=== PATIENT | female | born 1990 | race Caucasian/White ===

== ENCOUNTER 2016-12-28 05:30 | Inpatient (IN) | payer OTHER ==
[2016-12-28] MEDS: Lactated Ringer's 1,000 ML IV SCH ×2 (07:30→09:32)
[2016-12-28] MEDS ORDERED: LR 500 ML/Oxytocin 10 units 0 ML ONE ×4 (07:40→07:41)
[2016-12-28] MEDS ORDERED: LR 500 ML/Oxytocin 10 units 500 ML ONE (07:42)
[2016-12-28] MEDS ORDERED: Acetaminophen 500 MG TAB PO PRN (07:55)
[2016-12-28] MEDS ORDERED: LR / Pitocin 40 units/1000 ml 1,000 ML IV PRN (07:55)
[2016-12-28] MEDS ORDERED: Lidocaine 1% (PF) 30 ML VIAL SC PRN (07:55)
[2016-12-28] MEDS ORDERED: HYDROcodone/Acetaminophen 5/325 mg Tablet PO PRN ×2 (07:55→22:18)
[2016-12-28] MEDS ORDERED: Misoprostol 200 MCG TAB PR PRN (07:55)
[2016-12-28] MEDS ORDERED: Ibuprofen 800 MG TAB PO PRN (07:55)
[2016-12-28] MEDS ORDERED: Meperidine HCl/PF 25 MG/ML VIAL IM/IV PRN (07:55)
[2016-12-28] MEDS ORDERED: Promethazine HCl 25 MG/ML VIAL IM PRN ×2 (07:55→09:16)
[2016-12-28] MEDS ORDERED: Carboprost 250 MCG/ML AMP IM PRN (07:55)
[2016-12-28 08:08] LABS: Hematocrit 37.2 % (36.0-47.0); Mean Platelet Volume 8.1 fL (7.4-10.4); Red Blood Cell (RBC) Count 4.24 mill/uL (4.20-5.40); White Blood Cell (WBC) Count 7.9 thou/uL (4.8-10.8)
[2016-12-28 08:18] VITALS: BMI 35.4
[2016-12-28] MEDS ORDERED: Fentanyl 4 mcg/Marc 0.1% Cadd 100 ML ONE (08:41)
[2016-12-28] MEDS ORDERED: Eucerin (Mineral Oil/Petrolatum,White) 30 gm Jar TOP PRN (09:16)
[2016-12-28] MEDS ORDERED: Acetaminophen 325 MG TAB PO PRN (09:16)
[2016-12-28] MEDS ORDERED: Lactated Ringer's 500 ML IV PRN (09:16)
[2016-12-28] MEDS ORDERED: ePHEDrine/0.9% NaCl/PF SYRINGE 50 mg/10 ml SLOW IVP PRN (09:16)
[2016-12-28] MEDS ORDERED: Ondansetron HCl/PF 4 MG/2 ML Vial IVP PRN (09:16)
[2016-12-28] MEDS ORDERED: Naloxone HCl 0.4 mg/ml Vial IVP PRN ×2 (09:16)
[2016-12-28] MEDS ORDERED: diphenhydrAMINE HCl 50 MG/ML 1 ML VIAL IVP PRN (09:16)
[2016-12-28] MEDS ORDERED: Fentanyl 4mcg/Marcaine 0.1% Cassette 100 ML EPIDURAL SCH (09:30)
[2016-12-28] MEDS ORDERED: Communication Order-Pharmacy FS SCH (09:30)
[2016-12-28] MEDS: Ondansetron HCl/PF 4 MG/2 ML Vial IVP PRN ×2 (09:42→17:08)
[2016-12-28] MEDS: LR 500 ML/Oxytocin 10 units 500 ML IV SCH ×2 (14:14→17:40)
[2016-12-28] MEDS ORDERED: FLU VACC QS2017-18 36 mo. & older 0.5 ML SYRINGE IM ONE (21:00)
[2016-12-28] MEDS ORDERED: Bisacodyl 10 MG SUPP PR PRN (22:18)
[2016-12-28] MEDS ORDERED: LR / Pitocin 40 units/1000 ml 1,000 ML IV SCH (22:18)
[2016-12-28] MEDS ORDERED: Preparation H Ointment 28 GM TUBE PR PRN (22:18)
[2016-12-28] MEDS ORDERED: Benzocaine/Menthol 20-0.5% 60 ML CAN TOP PRN (22:18)
[2016-12-28] MEDS ORDERED: Lanolin Ointment 7 GM TUBE TOP PRN (22:18)
[2016-12-28] MEDS ORDERED: Milk Of Magnesia 30 ML UDCUP PO PRN (22:18)
[2016-12-28] MEDS ORDERED: Docusate (Surfak) 240 MG CAP PO SCH (22:45)
[2016-12-28] MEDS ORDERED: Ibuprofen 800 MG TAB PO SCH (22:45)
--- NOTE | 2016-12-28 22:54 | OP ---
DATE OF DELIVERY: 12/28/2016 PREOPERATIVE DIAGNOSES: Term intrauterine . Elective induction of labor at term. POSTOPERATIVE DIAGNOSES: Term intrauterine . Elective induction of labor at term. PROCEDURE PERFORMED: Normal spontaneous vaginal delivery. SURGEON: Arian Jordan MD ANESTHESIA: Epidural. ESTIMATED BLOOD LOSS: 250 mL. BRIEF DELIVERY SUMMARY: This is a 26-year-old G3, now P3, who presented for elective induction of l abor at term with a favorable cervix. She received Pitocin and underwent artificial rupture of memb ranes with excellent progress in labor. She progressed well to complete and pushing. She delivered a live male infant, head OA, mouth and nares were bulb suctioned at the perineum. There was a loos e nuchal cord x1, which was easily reduced prior to delivery of the shoulders. Shoulders and body e asily followed and the infant was placed on mother's abdomen. Infant Apgars were 9 at 1 minute and 9 at 5 minutes. The umbilical cord was doubly clamped and cut and cord blood was collected for anal ysis. Placenta delivered spontaneously and intact with a 3-vessel umbilical cord. Uterine fundus w as firm following evacuation of the placenta and clot. Total estimated blood loss was 250 mL. Mom and baby were left with the nurse in excellent condition attempting to breast feed.
[2016-12-29] MEDS: Ibuprofen 800 MG TAB PO SCH ×3 (06:16→21:02)
[2016-12-29] MEDS: Docusate (Surfak) 240 MG CAP PO SCH ×2 (09:27→21:02)
[2016-12-29] MEDS: Ferrous Sulfate 325 MG TAB PO SCH ×2 (09:29→16:09)
[2016-12-29] MEDS ORDERED: FLU VACC QS2017-18 36 mo. & older 0.5 ML SYRINGE IM ONE (12:00)
[2016-12-30] MEDS: Ibuprofen 800 MG TAB PO SCH ×2 (06:11→09:52)
[2016-12-30] MEDS: Docusate (Surfak) 240 MG CAP PO SCH (09:52)
[2016-12-30] MEDS: Ferrous Sulfate 325 MG TAB PO SCH (09:53)
[2016-12-30 10:49] VITALS: BP 122/81; TEMP 98.3
[2016-12-30] MEDS ORDERED: Adacel (T-DAP) 0.5 ML VIAL IM ONE (14:00)
[2016-12-30] MEDS ORDERED: FLU VACC QS2017-18 36 mo. & older 0.5 ML SYRINGE IM ONE (15:00)
== END 2016-12-30 14:50 | disposition home or self-care (01) | DRG 775 ==
LOC: L&D 06:39 → 3SW 22:03
PROVIDERS: ADMIT Family Medicine; ATTEND Family Medicine
PROC: 10E0XZZ Delivery of Products of Conception, External Approach (ICD-10-PCS; principal; 2016-12-28)
PROC: 10907ZC Drainage of Amniotic Fluid, Therapeutic from Products of Conception, Via Natural or Artificial Opening (ICD-10-PCS; 2016-12-28)
PROC: 3E0P3VZ Introduction of Hormone into Female Reproductive, Percutaneous Approach (ICD-10-PCS; 2016-12-28)
DX: O69.81X0 Labor and delivery complicated by cord around neck, without compression, not applicable or unspecified (principal); D68.51 Activated protein C resistance; O99.12 Other diseases of the blood and blood-forming organs and certain disorders involving the immune mechanism complicating childbirth; Z37.0 Single live birth; Z3A.39 39 weeks gestation of pregnancy
CPT/HCPCS: 85027; 86780; 87340; 90471; 90682; 90715; G0008; J2405; J7120; Q2036